=== PATIENT | male | born 1975 | race Hispanic/Latino ===

== ENCOUNTER 2018-05-14 19:51 | Emergency (ER) | payer OTHER, SELFPAY ==
[2018-05-14 19:57] VITALS: BP 144/90; PULSE 98; RESP 20; TEMP 36.2; O2SAT 98
[2018-05-14] MEDS: KETOROLAC 60 MG/2 ML VIAL IM (20:30)
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
[2018-05-14 21:00] VITALS: BP 136/72; PULSE 88; RESP 16; O2SAT 99
== END 2018-05-14 21:02 | disposition home or self-care (01) ==
PROVIDERS: Emergency Provider Nurse Practitioner Family; PCP Family Medicine
DX: S39.012A Strain of muscle, fascia and tendon of lower back, initial encounter (principal); V49.40XA Driver injured in collision with unspecified motor vehicles in traffic accident, initial encounter
CPT/HCPCS: 96372; 99282; 99283; J1885

== ENCOUNTER → 2018-11-06 12:24 | Outpatient (CLI) | payer OTHER, SELFPAY ==
--- NOTE | 2018-11-06 | DI.RAD.S_ITS ---
PROCEDURE: XR CHEST 2V INDICATIONS: Please ensure that disease is not present. TECHNIQUE: 2 views of the chest were acquired. COMPARISON: None. FINDINGS: Surgical changes and devices: None. Lungs and pleura: Lungs are clear. No pleural effusions or pneumothorax. Mediastinum: Mediastinal contours are normal. Heart size is normal. Bones and chest wall: No suspicious bony abnormalities. Soft tissues appear unremarkable. IMPRESSION: No disease found. Normal for age. Dictated by: Jay Frank M.D. on 11/06/2018 at 13:02 Approved by: Jay Frank M.D. on 11/06/2018 at 13:03
== END ==
PROVIDERS: Visit Provider Physician Assistant
DX: R68.89 Other general symptoms and signs (principal)
CPT/HCPCS: 71046; 87400

== ENCOUNTER → 2018-11-06 13:38 | Outpatient (CLI) | payer OTHER, SELFPAY ==
[2018-11-06 14:21] LABS: Influenza A and B by PCR Rapid Negative (Negative)
== END ==
PROVIDERS: Visit Provider Physician Assistant
DX: R68.89 Other general symptoms and signs (principal)
CPT/HCPCS: 87400

== ENCOUNTER → 2024-08-09 13:04 | Outpatient (CLI) | payer OTHER, SELFPAY ==
[2024-08-09 14:05] LABS: Influenza A - CEPHEID Flu A NEGATIVE (NEGATIVE); Influenza B - CEPHEID Flu B NEGATIVE (NEGATIVE); Respiratory Syncytial Virus Negative (Negative)
[2024-08-09 14:45] LABS: COVID-19 CEPHEID 4-PLEX PCR Negative (Negative)
== END ==
PROVIDERS: Visit Provider Student in an Organized Health Care Education/Training Program
DX: R05.1 Acute cough (principal)
CPT/HCPCS: 0241U